=== PATIENT | male | born 1940 ===

== ENCOUNTER 2018-01-10 11:54 | Emergency (ER) | payer MEDICARE, MEDICAID ==
--- NOTE | 2018-01-10 13:09 | ED PDOC ---
HPI: Back Time Seen by Provider: 01/10/18 12:54 Chief Complaint (Nursing): Back Pain History Per: Patient Additional Complaint(s): 77 yo male, PMH of DM, presents to ED with complaints of R flank pain x 2 days. Pt denies any fever, chills, nausea, vomiting, or diaphoresis. No Hematuria or dysuria Past Medical History Reviewed: Nursing Documentation, Vital Signs Vital Signs: Last Vital Signs Temp 98.0 F 01/10/18 12:08 Pulse 84 01/10/18 12:08 Resp 16 01/10/18 12:08 BP 136/61 01/10/18 12:08 Pulse Ox 98 01/10/18 12:08 - Medical History PMH: No Chronic Diseases - Surgical History Surgical History: No Surg Hx - Family History Family History: States: No Known Family Hx - Living Arrangements Living Arrangements: With Family - Home Medications Home Medications: Ambulatory Orders Medication Instructions Recorded Tamsulosin [Flomax] 0.4 mg PO DAILY #10 cap 01/10/18 - Allergies Allergies/Adverse Reactions: Allergies Allergy/AdvReac Type Severity Reaction Status Date / Time No Known Allergies Allergy Verified 01/10/18 12:08 Review of Systems ROS Statement: Except As Marked, All Systems Reviewed And Found Negative Gastrointestinal: Positive for: Abdominal Pain Physical Exam - Reviewed Nursing Documentation Reviewed: Yes Vital Signs Reviewed: Yes - Physical Exam Appears: Positive for: Well, Non-toxic, No Acute Distress Head Exam: Positive for: ATRAUMATIC, NORMAL INSPECTION, NORMOCEPHALIC Skin: Positive for: Normal Color, Warm, DRY Eye Exam: Positive for: EOMI, Normal appearance, PERRL ENT: Positive for: Normal ENT Inspection Neck: Positive for: Normal, Painless ROM Cardiovascular/Chest: Positive for: Regular Rate, Rhythm Respiratory: Positive for: CNT, Normal Breath Sounds Gastrointestinal/Abdominal: Positive for: Normal Exam, Soft Back: Positive for: Normal Inspection, R CVA Tenderness Extremity: Positive for: Normal ROM Neurologic/Psych: Positive for: Alert, Oriented - Laboratory Results Result Diagrams: 01/10/18 13:28 01/10/18 13:28 - ECG O2 Sat by Pulse Oximetry: 98 Medical Decision Making Medical Decision Making: IV access established and treatment initiated with Toradol, good pain relief obtained Labs resulted and reviewed with pt who demonstrated full understanding IMPRESSION: No acute abdominal or pelvic abnormality. Mild enlargement of the prostate gland with median lobe hypertrophy indenting on the base of the urinary bladder. Please correlate with PSA levels. Moderate circumferential mural thickening of the urinary bladder wall likely related to bladder outlet obstruction. Secondary cystitis cannot be excluded. Please correlate with urine analysis. No evidence for nephrolithiasis, hydronephrosis or obstructive uropathy. No CT evidence for acute appendicitis. Pt educated on results and demonstrated full understanding. Given Urology follow up and Pt educated on importance of f/u. Disposition - Clinical Impression Clinical Impression: Flank pain, Prostate hypertrophy - Patient ED Disposition Is Patient to be Admitted: No - Disposition Referrals: Cortes Trejo Jr., MD [Staff Provider] - Disposition: Routine/Home Disposition Time: 17:41 Condition: STABLE Prescriptions: Tamsulosin [Flomax] 0.4 mg PO DAILY #10 cap Instructions: Benign Prostatic Hyperplasia (Enlarged Prostate), Flank Pain Forms: [facility] (Yi) Print Language: URUGUAYAN
[2018-01-10 13:41] LABS: BASO % 0.4 % (0.0-2.0); EOS # 0.8 K/uL (0.0-0.7); EOS % 8.4 % (0.0-4.0); HEMOGLOBIN 14.7 g/dL (12.0-18.0); LYMPH % 30.1 % (20.0-40.0); MEAN CELL VOLUME 87.3 fl (80.0-94.0); MEAN CORPUSCULAR HGB CONC 34.4 g/dL (33.0-37.0); MEAN PLATELET VOLUME 8.4 fl (7.2-11.7); MONO # 0.7 K/uL (0.0-0.8); MONO % 7.5 % (0.0-10.0); NEUT # 5.3 K/uL (1.8-7.0); NEUT % 53.6 % (50.0-75.0); NRBC % 0.1 % (0.0-0.0); RBC 4.88 Mil/uL (4.40-5.90); WHITE BLOOD COUNT 9.9 K/uL (4.8-10.8)
[2018-01-10 14:02] LABS: SQUAMOUS EPITHIAL 1 /hpf (0-5); URINE BACTERIA RARE (<OCC); URINE BILIRUBIN NEGATIVE (NEGATIVE); URINE BLOOD NEGATIVE (NEGATIVE); URINE CLARITY SLIGHTY-CLOUDY (Clear); URINE COLOR YELLOW (YELLOW); URINE GLUCOSE (UA) 150 mg/dL (Normal); URINE HYALINE CAST 0-2 /hpf (0-2); URINE LEUKOCYTE ESTERASE NEG Leu/uL (Negative); URINE PROTEIN 30 mg/dL (NEGATIVE); URINE UROBILINOGEN 0.2-1.0 mg/dL (0.2-1.0)
[2018-01-10 14:03] LABS: ALB/GLOB RATIO 1.2 (1.0-2.1); ALBUMIN 4.3 g/dL (3.5-5.0); ALT/SGPT 33 U/L (21-72); AMYLASE 99 U/L (30-110); AST/SGOT 33 U/L (17-59); BLOOD UREA NITROGEN 15 mg/dl (9-20); CALCIUM 9.4 mg/dL (8.4-10.2); GFR NON-AFRICAN AMERICAN > 60; LIPASE 761 U/L (23-300)
--- NOTE | 2018-01-10 14:37 | RAD ---
Date of service: 01/10/2018 PROCEDURE: CHEST RADIOGRAPH, 1 VIEW HISTORY: abdominal pain COMPARISON: None available. FINDINGS: LUNGS: No interval pulmonary disease appreciated bilaterally. PLEURA: No pneumothorax or pleural fluid seen. CARDIOVASCULAR: Normal. OSSEOUS STRUCTURES: No significant abnormalities. VISUALIZED UPPER ABDOMEN: Normal. OTHER FINDINGS: None. IMPRESSION: No acute cardiopulmonary disease appreciated.
--- NOTE | 2018-01-10 15:01 | CT ---
Date of service: 01/10/2018 PROCEDURE: CT Abdomen and Pelvis without intravenous contrast HISTORY: Right flank pain COMPARISON: None. TECHNIQUE: CT scan of the abdomen and pelvis was performed without administration of intravenous contrast. Oral contrast was not administered. Coronal and sagittal reformatted images were obtained. Radiation dose: Total exam DLP = 826.73 mGy-cm. This CT exam was performed using one or more of the following dose reduction techniques: Automated exposure control, adjustment of the mA and/or kV according to patient size, and/or use of iterative reconstruction technique. FINDINGS: LOWER THORAX: There is dependent atelectasis in the lung bases. LIVER: Normal in size. No intrahepatic ductal dilatation. GALLBLADDER AND BILE DUCTS: Surgically absent. PANCREAS: Normal in size. No ductal dilatation. SPLEEN: Normal in size. ADRENALS: Normal in size. No discrete nodule. KIDNEYS AND URETERS: Normal in size without nephrolithiasis. No hydronephrosis. VASCULATURE: No aortic aneurysm. BOWEL: The small bowel loops are normal in caliber. There is scattered colonic diverticulosis without CT evidence for acute diverticulitis. No bowel dilatation or wall thickening. No bowel obstruction. APPENDIX: Normal appendix. PERITONEUM: No free fluid. No free air. LYMPH NODES: No enlarged lymph nodes. BLADDER: There is moderate circumferential mural thickening of the urinary bladder wall. REPRODUCTIVE: The prostate gland is markedly enlarged with median lobe hypertrophy indenting on the base of the urinary bladder. BONES: No acute fracture. Within normal limits for the patient's age. OTHER FINDINGS: There are bilateral small fat containing inguinal hernias. There is a small fat containing umbilical hernia. IMPRESSION: No acute abdominal or pelvic abnormality. Mild enlargement of the prostate gland with median lobe hypertrophy indenting on the base of the urinary bladder. Please correlate with PSA levels. Moderate circumferential mural thickening of the urinary bladder wall likely related to bladder outlet obstruction. Secondary cystitis cannot be excluded. Please correlate with urine analysis. No evidence for nephrolithiasis, hydronephrosis or obstructive uropathy. No CT evidence for acute appendicitis.
--- NOTE | 2018-01-10 16:23 | US ---
Date of service: 01/10/2018 HISTORY: elevated lipase, RUQ/flank pain COMPARISON: None. TECHNIQUE: Grayscale imaging was performed. FINDINGS: LIVER: Measures 18.8 cm in length. There is diffuse increased echogenicity of the liver parenchyma. No mass. No intrahepatic bile duct dilatation. GALLBLADDER: Surgically absent. COMMON BILE DUCT: Measures 4.0 mm. No stones. No dilatation. PANCREAS: Unremarkable as visualized. No mass. No ductal dilatation. RIGHT KIDNEY: Measures 12.2 cm in length. Normal echogenicity. No calculus, cyst, or hydronephrosis. There is a 1.2 x 0.7 x 0.9 cm well-circumscribed hyperechoic lesion in the lower pole. AORTA: No aneurysmal dilatation. IVC: Unremarkable. OTHER FINDINGS: None . IMPRESSION: Mild hepatomegaly. Diffuse increased echogenicity in the liver may reflect hepatic steatosis however parenchymal infectious/ inflammatory etiologies cannot be entirely excluded. Clinical and laboratory correlation is advised. 1.2 cm lesion in the lower pole of the right kidney when corroborated with the CT scan performed the same day represents a cortical scar.
[2018-01-10 17:46] VITALS: BP 114/68; PULSE 68; RESP 19; TEMP 98.1; O2SAT 96
--- NOTE | 2018-01-11 07:46 | CARD ---
APPROVED REPORT Date of service: 01/10/2018 EKG Measurement Heart [id number] <Conclusion> Normal sinus rhythm Left anterior fascicular block Abnormal ECG
== END 2018-01-10 17:52 | disposition home or self-care (01) ==
LOC: H.ER 11:54 → EDBD 11:54 → H.ER 17:52
DX: N40.0 Benign prostatic hyperplasia without lower urinary tract symptoms (principal); E11.9 Type 2 diabetes mellitus without complications; M54.9 Dorsalgia, unspecified
CPT/HCPCS: 71045; 74176; 76705; 80053; 81003; 82150; 83690; 84484; 85025; 93005; 96374; 96375; 99284; J1885; J2405